=== PATIENT | female | born 1955 | race Caucasian/White ===

== ENCOUNTER 2018-04-11 22:23 | Emergency (ER) | payer BC, OTHER ==
[~2018-04-11] VITALS: Ht 170.2 cm; Wt 117.9 kg
[2018-04-11] MEDS ORDERED: CYCLOBENZAPRINE5 MG PO (22:49)
[2018-04-11] MEDS ORDERED: AMARYL2 MG PO ×2 (22:50→22:51)
[2018-04-11] MEDS ORDERED: PAXIL10 MG PO (22:51)
[2018-04-11] MEDS ORDERED: TRAZODONE HCL100 MG PO (22:52)
[2018-04-11] MEDS ORDERED: SYNTHROID75 MCG PO (22:53)
[2018-04-11] MEDS ORDERED: ZOCOR20 MG PO (22:54)
[2018-04-11] MEDS ORDERED: BUSPIRONE HCL10 MG PO (22:55)
[2018-04-11] MEDS ORDERED: PERCOCET 10-321 EACH PO (22:59)
[2018-04-11 23:41] LABS: ABSOLUTE BASOPHILS 0.1 thou/uL (0.0-0.2); ABSOLUTE EOSINOPHILS 0.3 thou/uL (0.0-0.7); ABSOLUTE LYMPHOCYTES 3.2 thou/uL (0.8-5.3); ABSOLUTE MONOCYTES 0.9 thou/uL (0.0-1.2); BASOPHILS 0.8 %; EOSINOPHILS 2.5 %; HEMATOCRIT 31.7 % (37.0-47.0); HEMOGLOBIN 9.6 gm/dL (12.0-15.0); LYMPHOCYTES 23.8 %; MCHC 30.2 g/dL (28.0-37.0); MCV 72.9 fL (80.0-100.0); MONOCYTES 6.6 %; MPV 7.6 fl. (7.2-11.1); NUCLEATED RBCS 0 /100WBC; PLATELET COUNT* 504 thou/uL (150-400); POLYS 66.3 %; RBC 4.35 mil/uL (4.20-5.00); RDW-CV 18.7 % (10.5-14.5); WBC 13.5 thou/uL (4.0-11.0)
[2018-04-11 23:43] LABS: CALCIUM 8.8 mg/dL (8.5-10.1); CREATININE 0.9 mg/dL (0.6-1.3); POTASSIUM 3.1 mmol/L (3.5-5.1)
[2018-04-11 23:47] LABS: ALBUMIN 3.3 g/dL (3.4-5.0); TOTAL BILIRUBIN 0.2 mg/dL (<0.1-1.0); TOTAL PROTEIN 7.6 g/dL (6.4-8.2)
[2018-04-11] MEDS ORDERED: KEFLEX500 M1 PO (23:54)
[2018-04-11] MEDS ORDERED: IBUPROFEN 800800 MG PO (23:54)
[2018-04-11 23:58] LABS: URINE BILIRUBIN NEGATIVE (Negative); URINE BLOOD NEGATIVE (Negative); URINE CLARITY CLEAR; URINE COLOR STRAW; URINE GLUCOSE-RANDOM NEGATIVE (Negative); URINE KETONES NEGATIVE (Negative); URINE LEUKOCYTES-REFLEX NEGATIVE (Negative); URINE NITRITE-REFLEX NEGATIVE (Negative); URINE PROTEIN NEGATIVE (Negative); URINE SPECIFIC GRAVITY <= 1.005 (1.005-1.030); URINE UROBILINOGEN 0.2 E.U./dl (0.2-1.0)
[2018-04-12 00:08] LABS: AMP/METHAMP Negative (Negative); BARBITURATES Negative (Negative); BENZODIAZEPINES Negative (Negative); COCAINE Negative (Negative); METHADONE Negative (Negative); OPIATES Negative (Negative); PCP Negative (Negative); THC Negative (Negative)
[2018-04-12 00:57] VITALS: BP 140/57
[2018-04-12 07:46] LABS: PLATELET ESTIMATE INCREASED
[2018-04-12 07:47] LABS: HYPOCHROMASIA 1+; MICROCYTES 1+; POLYCHROMASIA 1+
[2018-04-12 07:48] LABS: ANISOCYTOSIS 1+; OVALOCYTES 1+; POIKILOCYTOSIS 1+
== END 2018-04-12 01:02 | disposition home or self-care (01) ==
LOC: M.ERS 22:23 → EDBD 22:23 → M.ERS 22:23
PROVIDERS: Personal Emergency Response Attendant
DX: S80.811A Abrasion, right lower leg, initial encounter (principal); R51 Headache; L28.0 Lichen simplex chronicus; L03.116 Cellulitis of left lower limb; L03.115 Cellulitis of right lower limb; F32.9 Major depressive disorder, single episode, unspecified; E05.90 Thyrotoxicosis, unspecified without thyrotoxic crisis or storm; X58.XXXA Exposure to other specified factors, initial encounter; Y93.89 Activity, other specified; Y92.89 Other specified places as the place of occurrence of the external cause; Y99.8 Other external cause status

== ENCOUNTER 2018-04-13 14:02 | Inpatient (IN) | payer BC, OTHER ==
[~2018-04-13] VITALS: Ht 170.2 cm; Wt 117.9 kg
--- NOTE | ~2018-04-13 | EKG ---
[place] [address] ELECTROCARDIOGRAM REPORT Name: KYLAH RAZO Room: [address] ADM IN [facility]#: [id number] Admission: 04/13/18 Attend Phys: Unruly Scott MD Discharge: Date of : 53 Report #: [id number] THIS REPORT FOR: //name// [facility] ED Test Date: 2018-04-13 Test Time: 15:20:15 Pat Name: KYLAH RAZO Department: Room: [facility] Gender: F Sample Clerk: KIKI : 1955 Requested By: Dorcas Rashid Order Number: [id number] MD: Measurements Intervals [place] Rate: 78 P: 15 CO: 132 QRS: 2 QRSD: 89 T: 44 QT: 405 QTc: 462 Interpretive Statements Sinus rhythm No previous ECG available for comparison [email or web address] By: 1520 1520 Cesar Guerrero MD /EPI
[~2018-04-13 14:02] MED LIST: AMARYL2 MG PO; BUSPIRONE HCL10 MG PO; CYCLOBENZAPRINE5 MG PO; IBUPROFEN 800800 MG PO; KEFLEX500 M1 PO; PAXIL10 MG PO; PERCOCET 10-321 EACH PO; SYNTHROID75 MCG PO; TRAZODONE HCL100 MG PO; ZOCOR20 MG PO
[2018-04-13 14:11] VITALS: BP 188/88
[2018-04-13 14:36] LABS: ABSOLUTE BASOPHILS 0.1 thou/uL (0.0-0.2); ABSOLUTE EOSINOPHILS 0.3 thou/uL (0.0-0.7); ABSOLUTE LYMPHOCYTES 2.2 thou/uL (0.8-5.3); ABSOLUTE MONOCYTES 0.8 thou/uL (0.0-1.2); ABSOLUTE NEUTROPHILS 8.6 thou/uL (1.6-8.1); BASOPHILS 0.7 %; EOSINOPHILS 2.1 %; HEMATOCRIT 33.1 % (37.0-47.0); HEMOGLOBIN 9.9 gm/dL (12.0-15.0); LYMPHOCYTES 18.5 %; MCH 21.6 pg (26.0-34.0); MCHC 29.8 g/dL (28.0-37.0); MCV 72.4 fL (80.0-100.0); MONOCYTES 6.9 %; MPV 7.4 fl. (7.2-11.1); NUCLEATED RBCS 0 /100WBC; PLATELET COUNT* 531 thou/uL (150-400); POLYS 71.8 %; RBC 4.57 mil/uL (4.20-5.00); WBC 11.9 thou/uL (4.0-11.0)
[2018-04-13 14:44] LABS: CREATININE 0.9 mg/dL (0.6-1.3)
[2018-04-13 14:48] LABS: POTASSIUM 2.9 mmol/L (3.5-5.1)
[2018-04-13 14:55] LABS: ALBUMIN 3.2 g/dL (3.4-5.0); TOTAL BILIRUBIN 0.1 mg/dL (<0.1-1.0); TOTAL PROTEIN 7.3 g/dL (6.4-8.2)
[2018-04-13 15:06] LABS: HYPOCHROMASIA 2+; OVALOCYTES Occasional; PLATELET ESTIMATE INCREASED
[2018-04-13 15:07] LABS: ANISOCYTOSIS 1+; TARGET CELLS Occasional
[2018-04-13 15:08] LABS: MICROCYTES 1+
[2018-04-13 16:20] VITALS: BP 145/47
[2018-04-13 20:30] VITALS: BP 117/48
[2018-04-14 04:56] LABS: HEMOGLOBIN 8.9 gm/dL (12.0-15.0); MCH 22.1 pg (26.0-34.0); MCHC 30.6 g/dL (28.0-37.0); MCV 72.1 fL (80.0-100.0); MPV 7.9 fl. (7.2-11.1); RBC 4.02 mil/uL (4.20-5.00); RDW-CV 18.7 % (10.5-14.5); WBC 10.3 thou/uL (4.0-11.0)
[2018-04-14 05:01] LABS: ANION GAP 8 mmol/L (7-16); BUN 4 mg/dL (7-18); CALCIUM 7.8 mg/dL (8.5-10.1); CHLORIDE 106 mmol/L (98-107); CO2 24 mmol/L (21-32); CREATININE 0.9 mg/dL (0.6-1.3); GLUCOSE 94 mg/dL (70-99); POTASSIUM 3.5 mmol/L (3.5-5.1); SODIUM 138 mmol/L (136-145)
[2018-04-14 05:05] LABS: CHOLESTEROL 120 mg/dL (<200); HDL CHOLESTEROL 48 mg/dL (>40); LDL CHOLESTEROL 59 mg/dL (<100); MAGNESIUM 2.2 mg/dL (1.8-2.4); TC:HDL 2.5 Ratio (Not establshd); TRIGLYCERIDE 68 mg/dL (<150); VLDL 14 mg/dL (<40)
[2018-04-14 05:07] LABS: SERUM ASSESSMENT Clear
[2018-04-14 08:00] VITALS: BP 148/69
--- NOTE | 2018-04-14 14:21 | 2DMMODE ---
[place] [address] 2 D/M-MODE ECHOCARDIOGRAM Name: KYLAH RAZO Room: [address] IN [facility]#: [id number] Admission: 04/13/18 Attend Phys: Unruly Scott, Discharge: Date of : 53 Date of Service: 04/14/18 1420 Report #: [id number] THIS REPORT FOR: //name// APPROVED REPORT Study performed: 04/14/2018 09:51:12 EXAM: Comprehensive 2D, Doppler, and color-flow Echocardiogram Patient Location: In-Patient Room #: [facility] Status: routine BSA: 2.26 HR: 87 bpm BP: 117/48 mmHg Rhythm: NSR Other Information Study Quality: Good Indications Dyspnea Cellulitis 2D Dimensions LVEF(%): 76.60 (>50%) IVSd: 12.73 (7-11mm) LVOT Diam: 19.36 (18-24mm) LVDd: 47.60 mm PWd: 10.92 (7-11mm) Ascending Ao: 37.74 (22-36mm) LVDs: 26.03 (25-40mm) Aortic Root: 32.76 mm Orellana's LVEF: 76.60 % Volumes Left Atrial Volume (Systole) LA ESV Index: 39.50 mL/m2 Aortic Valve AoV Peak Richard.: 2.13 m/s AO Peak Gr.: 18.09 mmHg LVOT Max P.95 mmHg AO Mean Gr.: 9.18 mmHg LVOT Mean P.89 mmHg LVOT Max V: 1.50 m/s AO V2 VTI: 39.17 cm LVOT Mean V: 1.04 m/s NATANAEL (VTI): 2.34 cm2 LVOT V1 VTI: 31.16 [place] [address] 2 D/M-MODE ECHOCARDIOGRAM Name: KYLAH RAZO Room: [address] IN [facility]#: [id number] Admission: 04/13/18 Attend Phys: Unruly Scott, Discharge: Date of : 53 Date of Service: 04/14/18 1420 Report #: [id number] E/A Ratio: 0.65 MV Decel. Time: 256.92 ms MV E Max Richard.: 0.82 m/s MV PHT: 74.51 ms MVA (PHT): 2.95 cm2 TDI E/Lateral E': 6.83 E/Medial E': 7.45 Medial E' Richard.: 0.11 m/s Lateral E' Richard.: 0.12 m/s Pulmonary Valve PV Peak Richard.: 1.46 m/s PV Peak Gr.: 8.53 mmHg Tricuspid Valve RAP Estimate: 5.00 mmHg TR Peak Gr.: 30.52 mmHg RVSP: 35.52 mmHg PA Pressure: 35.52 mmHg Left Ventricle The left ventricle is normal size. There is normal LV segmental wall motion. There is normal left ventricular wall thickness. Left ventricular systolic function is normal. The left ventricular ejection fraction is within the normal range. LVEF is 60-65%. Grade I - abnormal relaxation pattern. Right Ventricle The right ventricle is normal size. The right ventricular systolic function is normal. Atria Left atrium is mildly dilated. The right atrium size is normal. Aortic Valve The aortic valve is normal in structure. No aortic regurgitation is present. There is no aortic valvular stenosis. Mitral Valve The mitral valve is normal in structure. Mild mitral regurgitation. No evidence of mitral valve stenosis. Tricuspid Valve The tricuspid valve is normal in structure. Trace tricuspid regurgitation. [place] [address] 2 D/M-MODE ECHOCARDIOGRAM Name: KYLAH RAZO Room: [address]#: [id number] Admission: 04/13/18 Attend Phys: Unruly Scott, Discharge: Date of : 53 Date of Service: 04/14/18 1420 Report #: [id number] Pulmonic Valve The pulmonary valve is normal in structure. There is no pulmonic valvular regurgitation. Great Vessels The aortic root is normal in size. IVC is normal in size and collapses with >50% inspiration Pericardium There is no pericardial effusion. <Conclusion> The left ventricle is normal size. There is normal left ventricular wall thickness. Left ventricular systolic function is normal. The left ventricular ejection fraction is within the normal range. LVEF is 60-65%. Grade I - abnormal relaxation pattern. The right ventricle is normal size. Left atrium is mildly dilated. The right atrium size is normal. The aortic valve is normal in structure. The mitral valve is normal in structure. Mild mitral regurgitation. The tricuspid valve is normal in structure. IVC is normal in size and collapses with >50% inspiration There is no pericardial effusion. There is normal LV segmental wall motion. <ELECTRONICALLY SIGNED> By: Edison Werner MD, FACC 04/14/18 1420 142 142 Edison Werner MD, FACC /INF
[2018-04-14 16:00] VITALS: BP 133/62
[2018-04-14 21:00] VITALS: BP 137/65
[2018-04-15 03:07] LABS: GLYCOHEMOGLOBIN (HGB A1C) 5.7 % (4.8-5.6)
[2018-04-15 05:29] LABS: HEMOGLOBIN 9.4 gm/dL (12.0-15.0); MCH 22.5 pg (26.0-34.0); MCHC 30.4 g/dL (28.0-37.0); MCV 74.1 fL (80.0-100.0); MPV 8.8 fl. (7.2-11.1); RBC 4.18 mil/uL (4.20-5.00)
[2018-04-15 05:48] LABS: CALCIUM 8.2 mg/dL (8.5-10.1); CREATININE 0.9 mg/dL (0.6-1.3); MAGNESIUM 2.3 mg/dL (1.8-2.4)
[2018-04-15 08:30] VITALS: BP 138/61
[2018-04-15 16:53] VITALS: BP 142/49
[2018-04-15 20:00] VITALS: BP 114/58
[2018-04-16 08:27] VITALS: BP 152/71
[2018-04-16] MEDS ORDERED: CEFUROXIME500 MG PO (08:29)
[2018-04-16] MEDS ORDERED: FLUCONAZOLE 10100 MG PO (08:29)
[2018-04-16 08:59] VITALS: BP 114/58
[2018-04-16] MEDS ORDERED: IBUPROFEN 800800 M1 PO (11:31)
[2018-04-16 11:38] VITALS: BP 114/58
--- NOTE | 2018-04-23 13:04 | CON ---
[address] [address] CONSULTATION Name: KYLAH RAZO Room: [address] IN [facility]#: [id number] Admission: 04/13/18 Attend Phys: Unruly Scott MD Discharge: 04/16/18 Date of : 53 Report #: [id number] THIS REPORT FOR: //name// CC: Unruly Urena REASON FOR CONSULTATION: Left flat foot deformity with type 2 diabetes mellitus and peripheral neuropathy. HISTORY OF PRESENT ILLLNESS: The patient is a 63-year-old female admitted through [facility] for worsening bilateral leg cellulitis with venous insufficiency. She has type 2 diabetes mellitus and she lives a very sedentary lifestyle. She typically sits throughout the day with minimal ambulation in house shoes. She relates low-grade pain in the left foot with prolonged standing, but she is, for the most part, sedentary. She denies any injury to either foot or lower extremity. She is currently on parenteral vancomycin for leg cellulitis. Her blood cultures are negative x 2. I reviewed her labs, which has decreased white blood count into the normal range. 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 Both legs are wrapped with 3-layer compression bandages; therefore, I am unable to examine her skin. DIAGNOSTIC DATA: I reviewed her x-rays and there is no fracture or acute joint subluxation or Charcot arthropathy. She has a severely pronated left flat foot deformity. 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 PLAN: The patient has just scheduled a followup appointment with me in my office to evaluate her for custom foot orthotics and shoes. <ELECTRONICALLY SIGNED> By: Ranjit Beckman DPM 04/23/18 1304 1245 2233Dayo Beckman DPM /nt
== END 2018-04-16 15:22 | disposition home health service (06) | DRG 872 ==
LOC: M.ERS 14:02 → M.ORTHSURG 15:17 → M.TBA-ER 15:17 → M.ORTHSURG 16:32
PROVIDERS: Nurse Practitioner Family; ADMIT Internal Medicine
DX: A41.9 Sepsis, unspecified organism (principal); L03.116 Cellulitis of left lower limb; Z68.41 Body mass index [BMI] 40.0-44.9, adult; E44.1 Mild protein-calorie malnutrition; I42.9 Cardiomyopathy, unspecified; L03.115 Cellulitis of right lower limb; I50.30 Unspecified diastolic (congestive) heart failure; E03.9 Hypothyroidism, unspecified; E87.6 Hypokalemia; M21.42 Flat foot [pes planus] (acquired), left foot; E11.42 Type 2 diabetes mellitus with diabetic polyneuropathy; I87.2 Venous insufficiency (chronic) (peripheral); E88.81 Metabolic syndrome and other insulin resistance; I11.0 Hypertensive heart disease with heart failure; F32.9 Major depressive disorder, single episode, unspecified; G43.909 Migraine, unspecified, not intractable, without status migrainosus; G89.29 Other chronic pain; E66.9 Obesity, unspecified; Z79.899 Other long term (current) drug therapy; Z88.2 Allergy status to sulfonamides; Z82.49 Family history of ischemic heart disease and other diseases of the circulatory system

== ENCOUNTER 2019-05-06 00:34 | Emergency (ER) | payer BC, OTHER ==
[~2019-05-06] VITALS: Ht 170.2 cm; Wt 108.9 kg
[~2019-05-06 00:34] MED LIST changes: +CEFUROXIME500 MG PO; +FLUCONAZOLE 10100 MG PO; +IBUPROFEN 800800 M1 PO
[2019-05-06] MEDS ORDERED: CYCLOBENZAPRINE5 MG PO (00:56)
[2019-05-06 01:00] LABS: ABSOLUTE BASOPHILS 0.1 thou/uL (0.0-0.2); ABSOLUTE EOSINOPHILS 0.2 thou/uL (0.0-0.7); ABSOLUTE LYMPHOCYTES 3.1 thou/uL (0.8-5.3); ABSOLUTE MONOCYTES 0.9 thou/uL (0.0-1.2); ABSOLUTE NEUTROPHILS 7.7 thou/uL (1.6-8.1); BASOPHILS 0.8 %; EOSINOPHILS 1.4 %; HEMATOCRIT 31.6 % (37.0-47.0); HEMOGLOBIN 9.5 gm/dL (12.0-15.0); LYMPHOCYTES 25.8 %; MCH 20.3 pg (26.0-34.0); MCHC 30.1 g/dL (28.0-37.0); MCV 67.6 fL (80.0-100.0); MONOCYTES 7.5 %; MPV 7.8 fl. (7.2-11.1); NUCLEATED RBCS 0 /100WBC; PLATELET COUNT* 533 thou/uL (150-400); POLYS 64.5 %; RBC 4.68 mil/uL (4.20-5.00); RDW-CV 17.5 % (10.5-14.5); WBC 11.9 thou/uL (4.0-11.0)
[2019-05-06 01:16] LABS: ANION GAP 14 mmol/L (7-16); BUN 6 mg/dL (7-18); CALCIUM 9.2 mg/dL (8.5-10.1); CHLORIDE 97 mmol/L (98-107); CO2 23 mmol/L (21-32); CREATININE 0.8 mg/dL (0.6-1.3); GLUCOSE 111 mg/dL (70-99); POTASSIUM 3.8 mmol/L (3.5-5.1); SODIUM 134 mmol/L (136-145)
[2019-05-06 01:19] LABS: PROTIME 10.7 Seconds (9.20-11.50)
[2019-05-06 01:26] LABS: ALBUMIN 4.3 g/dL (3.4-5.0); ALKALINE PHOSPHATASE 126 U/L (46-116); LIPASE 102 U/L (73-393); NT-PRO BRAIN NAT PEPTIDE 31 pg/mL (<300); SGOT 19 U/L (15-37); SGPT 21 U/L (30-65); TOTAL BILIRUBIN 0.4 mg/dL (<0.1-1.0); TOTAL PROTEIN 7.9 g/dL (6.4-8.2); TROPONIN-I LEVEL <0.06 ng/mL (<0.06)
[2019-05-06 03:01] LABS: URINE BILIRUBIN NEGATIVE (Negative); URINE BLOOD NEGATIVE (Negative); URINE CLARITY CLEAR; URINE COLOR STRAW; URINE GLUCOSE-RANDOM NEGATIVE (Negative); URINE KETONES NEGATIVE (Negative); URINE LEUKOCYTES-REFLEX NEGATIVE (Negative); URINE NITRITE-REFLEX NEGATIVE (Negative); URINE PROTEIN NEGATIVE (Negative); URINE SPECIFIC GRAVITY <= 1.005 (1.005-1.030); URINE UROBILINOGEN 0.2 E.U./dl (0.2-1.0)
[2019-05-06 03:31] LABS: HYPOCHROMASIA 2+; PLATELET ESTIMATE INCREASED
[2019-05-06 03:32] LABS: ANISOCYTOSIS 1+; MICROCYTES 3+; OVALOCYTES Occasional
[2019-05-06 03:33] LABS: POLYCHROMASIA 1+
[2019-05-06 03:35] LABS: POIKILOCYTOSIS 1+
[2019-05-06] MEDS ORDERED: SYNTHROID75 MCG PO (06:01)
[2019-05-06] MEDS ORDERED: FLEXERIL PO (06:01)
[2019-05-06] MEDS ORDERED: AMARYL2 MG PO (06:01)
[2019-05-06] MEDS ORDERED: ZOCOR20 MG PO (06:01)
[2019-05-06 06:23] VITALS: BP 121/68
--- NOTE | 2019-05-07 17:54 | EKG ---
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
== END 2019-05-06 06:23 | disposition home or self-care (01) ==
LOC: M.ERS 00:34
PROVIDERS: Emergency Medicine
DX: I10 Essential (primary) hypertension (principal); R42 Dizziness and giddiness; E11.9 Type 2 diabetes mellitus without complications; E78.5 Hyperlipidemia, unspecified; F32.9 Major depressive disorder, single episode, unspecified; E66.9 Obesity, unspecified; Z68.37 Body mass index [BMI] 37.0-37.9, adult; Z88.2 Allergy status to sulfonamides